=== PATIENT | male | born 1985 | race Caucasian/White ===

== ENCOUNTER 2020-09-14 12:53 | Emergency (ER) | payer SELFPAY ==
[2020-09-14] MEDS ORDERED: Ketorolac Tromethamine 30 MG/ML VIAL ONE (13:57)
--- NOTE | 2020-09-14 14:22 | RAD ---
XR Hip Rt 2-3 View INDICATION: Right upper leg pain for 3 days COMPARISON: None FINDINGS: Bones: There is a long supplemental medullary device fixating a healed right intertrochanteric hip fr acture. No acute fracture is evident. Hip joint: There is mild right hip osteoarthrosis. SI joints and symphysis pubis: Radiographically normal. Intrapelvic contents: Visualized bowel gas pattern is within normal limits. Surrounding soft tissues: Radiographically normal. IMPRESSION: 1. No acute osseous abnormality.
== END 2020-09-14 14:41 | disposition home or self-care (01) ==
LOC: ERS 12:53
DX: M25.551 Pain in right hip (principal); F17.210 Nicotine dependence, cigarettes, uncomplicated
CPT/HCPCS: 96372; J1885

== ENCOUNTER 2021-01-23 16:03 | Emergency (ER) | payer SELFPAY | END 2021-01-23 19:00 | disposition home or self-care (01) | LOC: ERS 16:03 | DX: S90.32XA Contusion of left foot, initial encounter (principal); F17.210 Nicotine dependence, cigarettes, uncomplicated; F17.290 Nicotine dependence, other tobacco product, uncomplicated; W20.8XXA Other cause of strike by thrown, projected or falling object, initial encounter ==

== ENCOUNTER 2021-08-29 08:13 | Emergency (ER) | payer SELFPAY ==
[2021-08-29] MEDS ORDERED: diphenhydrAMINE 50 MG CAP ONE (08:36)
[2021-08-29] MEDS ORDERED: predniSONE 20 MG TAB ONE (08:36)
== END 2021-08-29 08:56 | disposition home or self-care (01) ==
LOC: ERS 08:13
DX: L50.0 Allergic urticaria (principal)
CPT/HCPCS: 99283; J7512